=== PATIENT | male | born 1955 | race Caucasian/White ===

== ENCOUNTER → 2017-10-12 08:42 | Outpatient (CLI) | payer OTHER ==
[2014-02-13 06:40] VITALS: BMI 36.6
[~2017-10-12 08:42] MED LIST: ASPIRIN EC81 M1 PO; BENICAR20 MG PO; HYDROCODONE-APA1 TAB PO; MULTI-DAY VITAM1 TAB PO
== END | disposition home or self-care (01) ==
LOC: D.MRI 08:30
DX: M54.5 Low back pain (principal)